=== PATIENT | female | born 1990 | race Caucasian/White ===

== ENCOUNTER 2021-06-17 19:29 | Inpatient (IN) ==
[2021-06-17] MEDS ORDERED: OXYTOCIN 30 UNITS/500 ML BAG IV PRN (20:11)
[2021-06-17] MEDS: LACTATED RINGER'S 1,000 ML IV PRN (20:36)
[2021-06-17 20:58] LABS: Hematocrit (blood only) 35.6 % (37-47); Hemoglobin 12.3 g/dL (12.0-16.0); Mean Corpuscular Hemoglobin 28.3 pg (25-34); Mean Corpuscular Hgb Conc 34.6 g/dL (32-36); Mean Corpuscular Volume 81.8 fL (80-100); Mean Platelet Volume 11.6 fL (7.4-10.4); Platelet Count 203 K/uL (130-400); RDW Coefficient of Variation 14.4 % (11.5-14.5); RDW Standard Deviation 43.4 fL (36.4-46.3); Red Blood Count 4.35 M/uL (4.2-5.4); White Blood Count 13.49 K/uL (4.8-10.8)
[2021-06-17] MEDS ORDERED: fentaNYL citrate 100 MCG/2 ML VIAL ONE (21:04)
[2021-06-17] MEDS ORDERED: fentaNYL 2MCG/ML ROPIVACAINE 1.25MG/ML 100 ML BAG EPI ONE (21:04)
[2021-06-17] MEDS ORDERED: ePHEDrine sulfate 50 MG/ML AMP ONE (21:04)
[2021-06-17] MEDS ORDERED: BUPIVACAINE 0.25% 30 ML VIAL ONE (21:04)
[2021-06-17] MEDS ORDERED: SODIUM CHLORIDE 0.9% INJ 10 ML VIAL ONE (21:04)
--- NOTE | 2021-06-17 21:21 | Anesthesiology Consultation ---
Date of Service June 17, 2021 Assessment & Plan (1) Encounter for pre-operative examination: Chart Review Chart Review: Acceptable Risk for Labor Epidural History Height/Weight Height: 5 ft 2 in Weight: 74.843 kg Allergies Allergy/AdvReac Type Severity Reaction Status Date / Time sulfamethoxazole Allergy Intermediate Hives Verified 06/17/21 20:27 [From Bactrim] trimethoprim [From Bactrim] Allergy Intermediate Hives Verified 06/17/21 20:27 Medications Home Medications Medication Instructions Recorded Confirmed Last Taken prenat.vits,barrie,pmv-xkvk-ylnix 1 tab PO DAILY 11/07/20 06/17/21 06/16/21 Active Medications Generic Name Dose Route Start Last Admin Trade Name Freq PRN Reason Stop Dose Admin Lactated Ringer's 1,000 mls @ 125 mls/hr 06/17/21 20:11 06/17/21 20:36 Lr IV 06/19/21 20:10 999 mls/hr .Q8H PRN Administration L&D Protocol Protocol Past Medical History Medical History History of chicken pox Varicella vaccination Past Family History Family History Father Colorectal cancer Kidney stone Denies family history of Ovarian cancer Breast cancer Past Surgical History Surgical History S/P wisdom tooth extraction Social History Smoking Status: Never smoker Hx Alcohol Use: No Hx Substance Use: No Physical Exam Vital Signs Last Vital Signs Temp 36.6 C 06/17/21 19:44 Pulse 98 H 06/17/21 19:49 Resp 16 06/17/21 19:44 BP 141/92 H 06/17/21 19:49 Testing Laboratory Results 06/17/21 20:19
[2021-06-17] MEDS ORDERED: ONDANSETRON INJ 2 MG/ML 2 ML VIAL IV PRN (21:51)
[2021-06-17] MEDS ORDERED: ePHEDrine sulfate 50 MG/ML AMP IV PRN (21:51)
[2021-06-17] MEDS ORDERED: NALOXONE HCL 0.4 MG/1 ML VIAL/CARP IV PRN (21:51)
[2021-06-17] MEDS ORDERED: fentaNYL 2MCG/ML ROPIVACAINE 1.25MG/ML 100 ML BAG EPI PRN (21:51)
[2021-06-17] MEDS ORDERED: NALOXONE HCL 1 MG in SODIUM CHLORIDE 0.9% 1000ML 1,000 ML IV PRN (21:51)
[2021-06-18] MEDS: LACTATED RINGER'S 1,000 ML IV PRN (01:03)
--- NOTE | 2021-06-18 03:37 | Delivery Summary ---
Vaginal Delivery Summary Date of Service June 18, 2021 Vaginal Delivery Summary Spontaneous vaginal delivery at term patient arrived group B strep negative Covid negative in active labor she been checked in the office and was 3 progressed to 4 she question the dural at that time she was also rupture of membranes she progressed to fully dilated spontaneously delivered a baby with literally only 1 contraction delivering occiput anterior. Mouth and nares were then suction there was no nuchal cord gentle traction no excessive force live vigorous female cord clamped and cut cord gases not obtained cord blood was obtained placenta removed for traction IV Pitocin started uterine tone improved there was no tearing estimated blood loss 250 mL sponge and instrument counts correct [facility] Vaginal Delivery Charge Delivery Type Details:
[2021-06-18] MEDS ORDERED: DIPHTHERIA/TETANUS/PERTUSSIS 0.5 ML SYR/VIAL IM ONE (06:34)
[2021-06-18] MEDS ORDERED: BENZOCAINE 20% AER SPR 82.5 GM CAN EXT PRN (06:34)
[2021-06-18] MEDS ORDERED: OXYTOCIN 30 UNITS/500 ML BAG IV PRN (06:34)
[2021-06-18] MEDS ORDERED: HYDROCORTISONE ACETATE 25 MG SUPP PR PRN (06:34)
[2021-06-18] MEDS ORDERED: SUPERCREAM 0.870% 15 GM JAR EXT PRN (06:34)
[2021-06-18] MEDS ORDERED: oxyCODONE/ACETAMINOPHEN 5mg/325mg TAB PO PRN (06:34)
[2021-06-18] MEDS ORDERED: ACETAMINOPHEN 325 MG TAB PO PRN (06:34)
--- NOTE | 2021-06-18 08:32 | Anesthesia Procedure Note ---
Date of Service June 18, 2021 Anesthesia Post Epidural Note Vital Signs Vital Signs: Temp Pulse Resp BP Pulse Ox 36.8 C 97 H 16 122/58 L 97 06/18/21 03:40 06/18/21 05:55 06/18/21 03:40 06/18/21 05:55 06/18/21 03:35 Notes Mental Status: alert / awake / arousable and participated in evaluation Patient Amnestic to Procedure: Yes Nausea / Vomiting: adequately controlled Pain: adequately controlled Airway Patency, RR, SpO2: stable & adequate BP & HR: stable & adequate Hydration State: stable & adequate Neuraxial Anesthesia: was administered and sensory block resolved Anesthetic Complications: no major complications apparent and Pt Satisfied with anesthetic care Epidural: Removed without complications and With tip intact
[2021-06-18] MEDS: DOCUSATE SODIUM 100 MG CAP PO SCH ×2 (08:33→20:53)
[2021-06-18] MEDS: PRENATAL VITAMIN 1 TAB PO SCH (08:33)
[2021-06-18] MEDS ORDERED: NON-FORMULARY MEDICATION (Prenat.Vits,Cal,Min-Iron-Folic tablet) PO SCH (09:00)
[2021-06-18] MEDS: IBUPROFEN 600 MG TAB PO PRN ×2 (11:57→19:17)
[2021-06-19] MEDS ORDERED: CALCIUM CARBONATE 500 MG CHEWABLE TAB PO ONE (00:35)
[2021-06-19] MEDS ORDERED: CALCIUM CARBONATE 500 MG CHEWABLE TAB ONE (00:36)
[2021-06-19] MEDS: IBUPROFEN 600 MG TAB PO PRN (00:37)
--- NOTE | 2021-06-19 06:54 | Obstetrical Progress Note ---
Date of Service <Reji Love DO - Last Filed: 06/19/21 06:56> June 19, 2021 Assessment & Plan <Reji Love DO - Last Filed: 06/19/21 06:56> (1) Encounter for care and examination after delivery: 30 yo PPD 1 s/p at 39 weeks -Continue routine care; expect D/C today -Vitals reviewed- HDS, afebrile -A+, GBS-, Rubella immune -Encouraged ambulation, regular diet -Pain control with ibuprofen, acetaminophen PRN -Encouraged -F/u in 6 weeks with OB <Valarie Carrillo MD, FACOG - Last Filed: 06/19/21 07:48> (1) Encounter for care and examination after delivery: Subjective <Reji Love DO - Last Filed: 06/19/21 06:56> Ambulation: ambulating normally Voiding: no voiding problems Passing Gas:: Yes Diet Tolerance:: regular diet Lochia:: Moderate Feeding Type:: breast feeding Current Pain Level(1-10): 0 PPD 1 s/p . Patient seen and examined at bedside. Reports no acute overnight events. Ambulating and voiding Review of Systems All systems reviewed & are unremarkable except as noted in HPI & below Physical Exam <Reji Love DO - Last Filed: 06/19/21 06:56> General: Alert, oriented, no acute distress Cardiac: Regular rate and rhythm, normal S1, S2. No murmurs appreciated. Respiratory: Clear to auscultation b/l with good air flow entry, symmetric chest rise and fall. No wheezes or crackles. No increased work of breathing or accessory muscle use Abdomen: Soft, nontender, nondistended. Fundus firm and palpable at level of umbilicus. No guarding or rebound. Skin: No rashes or lesions Extremities: Warm, dry, well-perfused with capillary refill <2s b/l. No lower extremity edema, erythema or swelling. Negative Catherine's sign b/l. Results & Data ([facility]) <Reji Love - Last Filed: 06/19/21 06:56> Vital Signs (Past 12 Hours) Vital Signs Temp Pulse Resp BP BP 06/19/21 00:35 36.4 C L 81 18 129/79 10/07/21 20:20 36.7 C 93 H 18 122/82 <Valarie Carrillo MD, FACOG - Last Filed: 06/19/21 07:48> Co-Signing Physician Notes Resident Physician Supervision Note: I was present with Dr. Love during the history and exam. I discussed the case with the resident and agree with the findings and plan as documented in the note. Any exceptions or clarifications are listed here: [None] Documented By: Valarie Carrillo MD, FACOG
[2021-06-19] MEDS: DOCUSATE SODIUM 100 MG CAP PO SCH (08:39)
[2021-06-19] MEDS: PRENATAL VITAMIN 1 TAB PO SCH (08:39)
[2021-06-19] MEDS ORDERED: bisacodyL 5 MG TABEC PO SCH (20:00)
[2021-06-20] MEDS ORDERED: bisacodyL 10 MG SUPP PR PRN (06:00)
== END 2021-06-19 12:30 | disposition home or self-care (01) | DRG 807 ==
LOC: OPB 19:29 → 4S1 19:31 → 4S2 06-18 06:51
DX: Z88.2 Allergy status to sulfonamides; Z3A.39 39 weeks gestation of pregnancy; O42.02 Full-term premature rupture of membranes, onset of labor within 24 hours of rupture; Z37.0 Single live birth; Z88.1 Allergy status to other antibiotic agents; Z79.899 Other long term (current) drug therapy; Z20.822 Contact with and (suspected) exposure to COVID-19